=== PATIENT | female | born 1945 | race Caucasian/White ===

== ENCOUNTER 2018-01-24 16:14 | Emergency (ER) | payer MEDICARE | END 2018-01-24 19:08 | disposition home or self-care (01) | LOC: EDH 16:14 | DX: S93.492A Sprain of other ligament of left ankle, initial encounter (principal); E78.5 Hyperlipidemia, unspecified; Z88.8 Allergy status to other drugs, medicaments and biological substances; W10.8XXA Fall (on) (from) other stairs and steps, initial encounter; Y93.89 Activity, other specified; Y92.098 Other place in other non-institutional residence as the place of occurrence of the external cause | CPT/HCPCS: 29515; 73610 ==

== ENCOUNTER 2020-06-05 05:53 | Emergency (ER) | payer MEDICARE ==
[2020-06-05] MEDS ORDERED: ONDANSETRON 4MG INJ ONE (06:09)
[2020-06-05] MEDS ORDERED: METOCLOPRAMIDE 10 MG/2 ML VIAL ONE (06:09)
[2020-06-05] MEDS ORDERED: PANTOPRAZOLE 40 MG/VIAL ONE (06:10)
[2020-06-05] MEDS ORDERED: KETOROLAC 30MG VIAL (30MG/ML) ONE (06:10)
[2020-06-05] MEDS ORDERED: FAMOTIDINE 20MG VIAL IV ONE (06:11)
[2020-06-05] MEDS ORDERED: 0.9%NACL 1000ML 1,000 ML IV ONE (06:11)
[2020-06-05 06:50] LABS: INR 1.02 (0.85-1.15); PROTHROMBIN TIME 11.1 SEC (9.6-11.6)
[2020-06-05 06:51] LABS: PARTIAL THROMBOPLASTIN TIME 26.8 SEC (26.3-35.5)
[2020-06-05 06:54] LABS: BASOPHILS % (AUTO) 0.6 % (0.0-5.0); EOSINOPHILS % (AUTO) 0.7 % (0.0-8.0); HEMATOCRIT 44.3 % (36-48); LYMPHOCYTES % (AUTO) 14.3 % (21.0-51.0); MEAN CORPUSCULAR HEMOGLOBIN 32.2 pg (27.0-33.0); MEAN CORPUSCULAR HGB CONC 33.9 g/dL (32.0-36.0); MEAN CORPUSCULAR VOLUME 95.1 fL (79-99); MONOCYTES % (AUTO) 6.1 % (3.0-13.0); PLATELET COUNT (AUTO) 138 K/uL (130-400); RED BLOOD CELL COUNT(AUTO) 4.66 MIL/uL (4.00-5.50); RED CELL DISTRIBUTION WIDTH 12.7 % (11.0-15.5); WHITE BLOOD COUNT (AUTO) 6.7 K/uL (4.8-10.8)
[2020-06-05 06:57] LABS: ALBUMIN 3.7 g/dL (3.5-5.0); BILIRUBIN,TOTAL 0.7 mg/dL (0.2-1.0); CREATININE 1.1 mg/dL (0.5-1.5); POTASSIUM 4.7 mmol/L (3.5-5.1); TOTAL PROTEIN, SERUM 7.7 g/dL (6.0-8.3)
[2020-06-05] MEDS ORDERED: FENTANYL CITRATE PF 50 MCG/1 ML 2ML VIAL ONE (08:23)
[2020-06-05 08:50] LABS: APPEARANCE,URINE Clear (CLEAR); BILIRUBIN,URINE Negative (NEGATIVE); COLOR,URINE Yellow (YELLOW); GLUCOSE, URINE (UA) 250 mg/dL (NEGATIVE); KETONES,URINE 15 mg/dL (NEGATIVE); LEUKOCYTE ESTERASE ,URINE Negative (NEGATIVE); NITRATE,URINE Negative (NEGATIVE); OCCULT BLOOD,URINE Moderate (NEGATIVE); PROTEIN,URINE POS 1+ mg/dL (NEGATIVE); UROBILINOGEN,URINE 0.2 mg/dL (0.2-1.0)
[2020-06-05 09:01] LABS: BACTERIA,URINE Rare /HPF (None Seen); SQUAMOUS EPITHELIAL CELL,UR 0-2 /HPF (0-2); WBC,URINE 0-1 /HPF (0-1)
[2020-06-05 09:02] LABS: CALCIUM OXALATE CRYSTALS,UR Rare /LPF (None Seen)
== END 2020-06-05 09:51 | disposition home or self-care (01) ==
LOC: EDH 05:53
DX: N13.2 Hydronephrosis with renal and ureteral calculous obstruction (principal); E86.0 Dehydration; R11.2 Nausea with vomiting, unspecified; E78.5 Hyperlipidemia, unspecified; Q05.9 Spina bifida, unspecified; Z88.1 Allergy status to other antibiotic agents; Z90.49 Acquired absence of other specified parts of digestive tract; Z96.649 Presence of unspecified artificial hip joint; Z96.659 Presence of unspecified artificial knee joint; Z86.12 Personal history of poliomyelitis
CPT/HCPCS: 36415; 74176; 80053; 81001; 83605; 83690; 84484; 85025; 85610; 85730; 93005; 96361; 96374; 96375 ×2; 99285; C9113; J1885; J2405; J2765; J3010; J3490; J7030